=== PATIENT | male | born 1965 | race Caucasian/White ===

== ENCOUNTER 2018-01-23 20:31 | Emergency (ER) | payer MEDICAID ==
[2018-01-23] MEDS: LIDOCAINE 2% (MDV) 20 ML INJ INJ (21:50)
== END 2018-01-23 22:47 | disposition home or self-care (01) ==
LOC: FTE 20:31
DX: L02.212 Cutaneous abscess of back [any part, except buttock and flank] (principal); F17.210 Nicotine dependence, cigarettes, uncomplicated; E11.9 Type 2 diabetes mellitus without complications
CPT/HCPCS: 10060; 82962; 99284-25

== ENCOUNTER 2018-01-26 11:37 | Emergency (ER) | payer MEDICAID ==
[2018-01-26] MEDS: CEPHALEXIN 500 MG CAP PO (13:23)
[2018-01-26] MEDS: TRIMETHOPRIM/SULFAMETHOX (DS) TAB PO (13:23)
[2018-01-26] MEDS: LIDOCAINE 1%/EPI 30 ML INJ INJ ×2 (13:30→13:38)
[2018-01-26] MEDS ORDERED: LIDOCAINE 1%/EPI (MDV) 50 ML INJ INJ (13:30)
== END 2018-01-26 14:10 | disposition home or self-care (01) ==
LOC: FTE 11:37
DX: L02.212 Cutaneous abscess of back [any part, except buttock and flank] (principal); E11.9 Type 2 diabetes mellitus without complications; F17.210 Nicotine dependence, cigarettes, uncomplicated
CPT/HCPCS: 99284; Z7502

== ENCOUNTER 2018-01-28 07:30 | Emergency (ER) | payer MEDICAID | END 2018-01-28 08:24 | disposition home or self-care (01) | LOC: FTE 07:30 | DX: Z48.01 Encounter for change or removal of surgical wound dressing (principal); E11.9 Type 2 diabetes mellitus without complications; Z87.891 Personal history of nicotine dependence | CPT/HCPCS: 99281; Z7502 ==